=== PATIENT | male | born 1985 | race Caucasian/White ===

== ENCOUNTER 2021-08-10 10:00 | Emergency (ER) | payer OTHER ==
[2021-08-10 10:07] VITALS: BP 136/88; PULSE 95; TEMP 98; BMI 34.0
== END 2021-08-10 11:30 | disposition home or self-care (01) ==
LOC: JERFT 10:00 → JER 10:00 → JERFT 11:30
DX: S30.811A Abrasion of abdominal wall, initial encounter (principal); W31.2XXA Contact with powered woodworking and forming machines, initial encounter
CPT/HCPCS: 99281-25